=== PATIENT | female | born 1975 | race Caucasian/White ===

== ENCOUNTER 2022-06-15 16:45 | Outpatient (RCR) | payer BC, SELFPAY | END 2022-08-13 10:03 | disposition home or self-care (01) | PROVIDERS: PCP Family Medicine; Visit Provider Family Medicine | DX: M54.2 Cervicalgia (principal); Z51.89 Encounter for other specified aftercare | CPT/HCPCS: 97012; 97032; 97110; 97140 ==

== ENCOUNTER 2022-11-23 16:46 | Emergency (ER) | payer BC, SELFPAY ==
[2022-11-23] VITALS (13 sets, daily range): BP systolic 107–118; BP diastolic 64–72; PULSE 74–98; RESP 20; TEMP 36.6; O2SAT 94–100; BMI 30.5
[2022-11-23] MEDS: 0.9 % SODIUM CHLORIDE 1000 ml 1,000 ML IV (17:18)
[2022-11-23] MEDS: ONDANSETRON 2 MG/ML inj 4 MG IVP (17:18)
[2022-11-23 17:25] LABS: HCG Qualitative* Negative (Negative)
[2022-11-23 17:26] LABS: Lactate* 0.5 mmol/L (0.5-1.9)
[2022-11-23 17:27] LABS: Basophils Percent Auto 0.3 % (0.0-3.0); Eosinophils Percent Auto 2.7 % (0.0-7.0); Hematocrit 41.9 % (33.0-51.0); Hemoglobin* 13.9 gm/dL (12.0-16.0); Immature Granulocytes Pct Auto 0.2 %; Lymphocytes Percent Auto 10.2 % (20-44); Mean Corpuscular HGB Conc 33 gm/dL (32-36); Mean Corpuscular Hemoglobin 32 pg (26-34); Mean Corpuscular Volume 96 fL (80-100); Monocytes Percent Auto 2.9 % (0.0-11.0); Neutrophils Percent Auto 83.7 % (42.0-72.0); Platelet Count* 288 K/uL (140-440); RDW Coefficient of Variation % 11.7 % (11.5-15.5); Red Blood Count 4.38 m/uL (4.00-5.20); White Blood Count* 15.14 K/uL (4.50-11.00)
--- NOTE | 2022-11-23 17:42 | ED_ITS ---
HPI - General Adult General Chief complaint: Nausea/Vomiting Stated complaint: Can't keep anything down, colonoscopy this morning Time Seen by Provider: 11/23/22 16:51 Source: patient Mode of arrival: ambulatory Limitations: no limitations History of Present Illness HPI narrative: 47-year-old female coming in today complaining of vomiting. Patient states that she had a colonoscopy this morning and it was uneventful, however when she tried to drink water shortly after colonoscopy was over she vomited and has not been able to keep down anything since. She denies any blood in her vomitus. She denies any abdominal pain. No fevers or chills. Patient is requesting IV fluids as she states that she is ?dry?. Related Data Home Medications Medication Instructions Recorded Confirmed beclomethasone dipropionate 80 1 spray intranasal BID 11/23/22 11/23/22 mcg/actuation nasal HFA inhaler (QNASL) bupropion HCl 150 mg 24 hr tablet, 150 mg PO DAILY 11/23/22 11/23/22 extended release fluoxetine 20 mg capsule 20 mg PO DAILY 11/23/22 11/23/22 methylphenidate HCl 20 mg tablet 20 mg PO 3XD 11/23/22 11/23/22 methylphenidate HCl 20 mg 20 mg PO 3XD 11/23/22 11/23/22 tablet,extended release spironolactone 50 mg tablet 150 mg PO DAILY 11/23/22 11/23/22 Previous Rx's Medication Instructions Recorded ondansetron HCl 4 mg tablet 4 mg PO TID PRN nausea and 11/23/22 vomiting #10 tabs Allergies Allergy/AdvReac Type Severity Reaction Status Date / Time No Known Drug Allergies Allergy Verified 11/23/22 16:58 Review of Systems Status of ROS: Reports: 10 or more systems reviewed and unremarkable except as noted in History and below PFSH PFS Social History Smoking Status: Never smoker Second hand tobacco smoke exposure: No How often do you have a drink containing alcohol: 2-4 times a month AUDIT-C Alcohol total score: 2 Non-prescribed substance use: denies use Exam Narrative: Exam Narrative: Well-nourished well-developed patient in no acute distress. Alert and oriented. Answers questions appropriately. Mood and affect are appropriate. Thoughts are goal oriented and rational. No tangential or magical thinking noted. Patient speaks in full sentences without needing to catch their breath. HEENT: Normocephalic atraumatic. Pupils are equally round reactive to light. Extraocular muscles are intact. Conjunctivae are moist without any icterus noted. Moist mucous membranes. Posterior pharynx is normal. Neck is soft without any lymphadenopathy or thyromegaly. No masses are appreciated. Cardiovascular: Heart is regular rate and rhythm S1 and S2 are present without any murmurs. Lungs: Clear to auscultation bilaterally no wheezes rhonchi or rales are appreciated. Patient takes deep breaths without any discomfort. Abdomen: Soft and nontender nondistended with normal bowel sounds. No guarding or rebound. No masses or organomegaly appreciated. Extremities: Bilateral lower extremities are without edema. Normal DP and PT pulses. Skin: Well perfused without any obvious rashes. Const: Vital Signs, click to edit/add: Vital Signs - 24 hr 11/23/22 16:52 11/23/22 17:01 11/23/22 17:02 Temperature 97.9 F Pulse Rate 75 76 Pulse Rate [Pulse Oximeter] 74 Respiratory Rate 20 Blood Pressure 107/68 Blood Pressure [Ri ght Upper Arm] 118/72 Pulse Oximetry 97 96 96 Oxygen Delivery Me thod Room Air Room Air 11/23/22 17:18 11/23/22 17:30 11/23/22 17:31 Temperature Pulse Rate 77 76 82 Pulse Rate [Pulse Oximeter] Respiratory Rate Blood Pressure 109/69 Blood Pressure [Ri ght Upper Arm] Pulse Oximetry 100 99 100 Oxygen Delivery Me thod 11/23/22 17:45 11/23/22 18:00 11/23/22 18:01 Temperature Pulse Rate 86 86 89 Pulse Rate [Pulse Oximeter] Respiratory Rate Blood Pressure 109/64 Blood Pressure [Ri ght Upper Arm] Pulse Oximetry 96 94 99 Oxygen Delivery Me thod Course Course Hospital Course: IV was started and patient received a L of normal saline and Zofran. She had no episodes of vomiting while she was here. She was taking very small sips of water and having ice chips without difficulty. Lab work was unremarkable aside from a slightly elevated white cell count which would be consistent with a stress reaction. Vital Signs Vital signs: Initial Vital Signs Temperature 97.9 F 11/23/22 16:52 Temperature Source Temporal Artery Scan 11/23/22 16:52 Pulse Rate 74 11/23/22 16:52 Respiratory Rate 20 11/23/22 16:52 Blood Pressure 118/72 11/23/22 16:52 Blood Pressure Mean 87 11/23/22 16:52 Blood Pressure Position Semi-Fowlers 11/23/22 16:52 Pulse Oximetry 97 11/23/22 16:52 Oxygen Delivery Method 11/23/22 16:52 Vital Signs Temperature 97.9 F 11/23/22 16:52 Pulse Rate 74 11/23/22 16:52 Respiratory Rate 20 11/23/22 16:52 Blood Pressure 118/72 11/23/22 16:52 Pulse Oximetry 97 11/23/22 16:52 Oxygen Delivery Method 11/23/22 16:52 Temperature 97.9 F 11/23/22 16:52 Pulse Rate 89 11/23/22 18:01 Respiratory Rate 20 11/23/22 16:52 Blood Pressure 109/64 11/23/22 18:01 Pulse Oximetry 99 11/23/22 18:01 Oxygen Delivery Method 11/23/22 17:01 Medical Decision Making MDM Narrative Medical decision making narrative: Vomiting. Question reaction from the anesthesia she received earlier today. Patient is now feeling much better. Will send her home with a handful of Zofran to take as needed. We talked about slow hydration with small sips of water frequently throughout the rest of the day. She was agreeable had no other questions. Lab Data Lab results reviewed: Yes I reviewed the patient's lab results Labs: Lab Results 11/23/22 11/23/22 11/23/22 Range/Units 16:57 17:15 17:15 WBC 15.14 H (4.50-11.00) K/uL RBC 4.38 (4.00-5.20) m/uL Hgb 13.9 (12.0-16.0) gm/dL Hct 41.9 (33.0-51.0) % MCV 96 (80-100) fL MCH 32 (26-34) pg MCHC 33 (32-36) gm/dL RDW Coeff of [place]ah[place] 11.7 (11.5-15.5) % Plt Count 288 (140-440) K/uL Neut % (Auto) 83.7 H (42.0-72.0) % Lymph % (Auto) 10.2 L (20-44) % [place] % (Auto) 2.9 (0.0-11.0) % Eos % (Auto) 2.7 (0.0-7.0) % Baso % (Auto) 0.3 (0.0-3.0) % Neut # (Auto) 12.70 H (1.7-7.0) K/uL Lymph # (Auto) 1.50 (0.90-2.90) K/uL [place] # (Auto) 0.40 (0.00-0.90) K/UL Eos # (Auto) 0.40 (0.00-0.50) K/uL Baso # (Auto) 0.00 (0.00-0.30) K/uL Sodium 137 (135-149) mmol/L Potassium 4.1 (3.6-5.1) mmol/L Chloride 105 (96-114) mmol/L Carbon Dioxide 28 (20-32) mmol/L BUN 10 (5-24) mg/dL Creatinine 0.7 (0.5-1.5) mg/dL Estimated Creat Clear 98.69 Estimated GFR 109 ml/min Glucose 105 (60-115) mg/dL Lactate (0.5-1.9) mmol/L Calcium 8.8 (8.4-10.6) mg/dL Total Bilirubin 0.6 (0.1-1.5) mg/dL Direct Bilirubin 0.1 (0.0-0.5) mg/dL AST 23 (12-35) U/L ALT 14 (4-35) U/L Alkaline Phosphatase 52 (40-150) U/L Total Protein 7.1 (6.0-8.3) g/dL Albumin 4.4 (3.3-5.0) g/dL Lipase 80 (23-300) U/L HCG, Qual Negative (Negative) 11/23/22 Range/Units 17:15 WBC (4.50-11.00) K/uL RBC (4.00-5.20) m/uL Hgb (12.0-16.0) gm/dL Hct (33.0-51.0) % MCV (80-100) fL MCH (26-34) pg MCHC (32-36) gm/dL RDW Coeff of [place]ahy (11.5-15.5) % Plt Count (140-440) K/uL Neut % (Auto) (42.0-72.0) % Lymph % (Auto) (20-44) % [place] % (Auto) (0.0-11.0) % Eos % (Auto) (0.0-7.0) % Baso % (Auto) (0.0-3.0) % Neut # (Auto) (1.7-7.0) K/uL Lymph # (Auto) (0.90-2.90) K/uL [place] # (Auto) (0.00-0.90) K/UL Eos # (Auto) (0.00-0.50) K/uL Baso # (Auto) (0.00-0.30) K/uL Sodium (135-149) mmol/L Potassium (3.6-5.1) mmol/L Chloride (96-114) mmol/L Carbon Dioxide (20-32) mmol/L BUN (5-24) mg/dL Creatinine (0.5-1.5) mg/dL Estimated Creat Clear Estimated GFR ml/min Glucose (60-115) mg/dL Lactate 0.5 (0.5-1.9) mmol/L Calcium (8.4-10.6) mg/dL Total Bilirubin (0.1-1.5) mg/dL Direct Bilirubin (0.0-0.5) mg/dL AST (12-35) U/L ALT (4-35) U/L Alkaline Phosphatase (40-150) U/L Total Protein (6.0-8.3) g/dL Albumin (3.3-5.0) g/dL Lipase (23-300) U/L HCG, Qual (Negative) Discharge Plan Discharge Clinical Impression: Vomiting Patient Disposition: Home, Self-Care Condition: Improved Additional Instructions: Drink very small sips of water frequently throughout the rest of the day to stay well hydrated. You may vomit again, okay to use Zofran as needed. Prescriptions: New ondansetron HCl 4 mg tablet 4 mg PO TID PRN (Reason: nausea and vomiting) Qty: 10 0RF No Action methylphenidate HCl 20 mg tablet 20 mg PO 3XD methylphenidate HCl 20 mg tablet extended release 20 mg PO 3XD fluoxetine 20 mg capsule 20 mg PO DAILY spironolactone 50 mg tablet 150 mg PO DAILY bupropion HCl 150 mg tablet extended release 24 hr 150 mg PO DAILY QNASL 80 mcg/actuation HFA aerosol inhaler 1 spray INTRANASAL BID Follow Up/Referrals: Florida Haney MD [Primary Care Provider] - Stand Alone Forms: [facility] Info Instructions
[2022-11-23 17:49] LABS: Albumin* 4.4 g/dL (3.3-5.0)
[2022-11-23 17:50] LABS: Chloride* 105 mmol/L (96-114); Potassium* 4.1 mmol/L (3.6-5.1); Sodium* 137 mmol/L (135-149)
[2022-11-23 17:52] LABS: Aspartate Amino Transferase* 23 U/L (12-35); Bilirubin Direct* 0.1 mg/dL (0.0-0.5); Bilirubin Total* 0.6 mg/dL (0.1-1.5); Blood Urea Nitrogen* 10 mg/dL (5-24); Carbon Dioxide* 28 mmol/L (20-32); Creatinine* 0.7 mg/dL (0.5-1.5); Est. Creatinine Clearance* 98.69; Estimated Glomerular Filt Rate 109 ml/min; Total Protein* 7.1 g/dL (6.0-8.3)
[2022-11-23 17:53] LABS: Alanine Aminotransferase* 14 U/L (4-35); Alkaline Phosphatase* 52 U/L (40-150); Calcium* 8.8 mg/dL (8.4-10.6); Glucose* 105 mg/dL (60-115); Lipase* 80 U/L (23-300)
[2022-11-23 18:02] LABS: Slide Review Reflex No
[2022-11-23] MEDS: KETOROLAC 30 MG/ML inj IVP (18:27)
== END 2022-11-23 18:48 | disposition home or self-care (01) ==
PROVIDERS: Emergency Provider Family Medicine; PCP Family Medicine
DX: R11.2 Nausea with vomiting, unspecified (principal)
CPT/HCPCS: 36415; 80048; 80076; 83605; 83690; 84703; 85025; 96374; 96375; 99283; 99284; J1885; J2405; J7030

== ENCOUNTER 2023-01-22 16:45 | Outpatient (RCR) | payer BC, SELFPAY | END 2023-04-08 09:10 | disposition home or self-care (01) | PROVIDERS: PCP Family Medicine; Referring Provider Family Medicine; Visit Provider Neurological Surgery | DX: M54.2 Cervicalgia (principal); Z51.89 Encounter for other specified aftercare | CPT/HCPCS: 97110; 97140; 97162 ==

== ENCOUNTER 2023-03-25 19:52 | Emergency (ER) | payer BC, SELFPAY ==
[2023-03-25] VITALS (17 sets, daily range): BP systolic 106–115; BP diastolic 53–72; PULSE 73–88; RESP 16; TEMP 36.1; O2SAT 95–100; BMI 31.3
--- NOTE | 2023-03-25 20:22 | ED_ITS ---
HPI - General Adult General Chief complaint: Headache/Migraine Stated complaint: CT myelogram done, dehydrated Time Seen by Provider: 03/25/23 20:19 History of Present Illness HPI narrative: Pt c/o headache , nausea, and vomiting that started today at 1200, when she had contrast dye injected via lumbar puncture for CT scan at [place]. Pt states as soon as dye was injected, headache and nausea started. Neuro surgery done in August and pt states she was still having a numb left hand , which is why they did the scan. 47-year-old woman presenting to the emergency department complaint of frequent vomiting and persistent nausea. Had a CT myelogram around noon today for p ersistent left hand numbness following end of last year foraminotomies of the low cervical spine. About 1/2 hour to 45 minutes after this procedure started to feel rather unwell with repeated vomiting. Headache is behind her eyes and up over her forehead. No new numbness or weakness. No fever. No discoordination. 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 Apparently per her mother this is a family condition. Headache intensifies upon sitting standing. Would like Zofran and fluids. Had received some Zofran earlier today. Evidently would like to delay blood patch. Related Data Home Medications Medication Instructions Recorded Confirmed beclomethasone dipropionate 80 1 spray intranasal BID 11/23/22 03/25/23 mcg/actuation nasal HFA inhaler (QNASL) bupropion HCl 150 mg 24 hr tablet, 150 mg PO DAILY 11/23/22 03/25/23 extended release fluoxetine 20 mg capsule 20 mg PO DAILY 11/23/22 03/25/23 methylphenidate HCl 20 mg tablet 20 mg PO 3XD PRN 11/23/22 03/25/23 methylphenidate HCl 20 mg 20 mg PO 3XD 11/23/22 11/23/22 tablet,extended release spironolactone 50 mg tablet 150 mg PO DAILY 11/23/22 03/25/23 sulfacetamide sodium (acne) 10 % topical DAILY 03/25/23 lotion (suspension) Previous Rx's Medication Instructions Recorded ondansetron HCl 4 mg tablet 4 mg PO TID PRN nausea and 11/23/22 vomiting #10 tabs Allergies Allergy/AdvReac Type Severity Reaction Status Date / Time Latex, Natural Rubber Allergy Mild Rash Verified 03/25/23 20:07 scopolamine Allergy Mild Blurry Verified 03/25/23 20:07 Vision Review of Systems Status of ROS: Reports: 6 or more systems reviewed and unremarkable except as noted in History and below [facility] Social History Smoking Status: Never smoker Do you use any of these nicotine containing products: None Second hand tobacco smoke exposure: No How often do you have a drink containing alcohol: 2-4 times a month AUDIT-C Alcohol total score: 2 Non-prescribed substance use: denies use service: No Exam Narrative: Exam Narrative: Pleasant. Laughs easily. Seems fatigued. Skin is warm and dry. Examination of the site of lumbar puncture shows a small bruising less than a cm in oval diameter. No swelling here. Cranial nerves 2-12 look to be intact. With pupils equal and briskly reactive. Heart is in a regular rhythm. Moving all extremities without difficulty. Appear to be well perfused and without edema. Const: Vital Signs, click to edit/add: Vital Signs - 24 hr 03/25/23 19:57 Temperature 97.0 F L Pulse Rate [Pulse Oximeter] 75 Respiratory Rate 16 Blood Pressure [Ri ght Upper Arm] 115/72 Pulse Oximetry 96 Oxygen Delivery Me thod Room Air Documenting provider has reviewed patient's vital signs: yes Course Vital Signs Vital signs: Initial Vital Signs Temperature 97.0 F L 03/25/23 19:57 Temperature Source Temporal Artery Scan 03/25/23 19:57 Pulse Rate 75 03/25/23 19:57 Respiratory Rate 16 03/25/23 19:57 Blood Pressure 115/72 03/25/23 19:57 Blood Pressure Mean 86 03/25/23 19:57 Blood Pressure Position Supine 03/25/23 19:57 Pulse Oximetry 96 03/25/23 19:57 Oxygen Delivery Method Room Air 03/25/23 19:57 Vital Signs Temperature 97.0 F L 03/25/23 19:57 Pulse Rate 75 03/25/23 19:57 Respiratory Rate 16 03/25/23 19:57 Blood Pressure 115/72 03/25/23 19:57 Pulse Oximetry 96 03/25/23 19:57 Oxygen Delivery Method Room Air 03/25/23 19:57 Temperature 97.0 F L 03/25/23 19:57 Pulse Rate 84 03/25/23 23:45 Respiratory Rate 16 03/25/23 19:57 Blood Pressure 107/63 03/25/23 22:02 Pulse Oximetry 97 03/25/23 23:45 Oxygen Delivery Method Room Air 03/25/23 19:57 Medical Decision Making MDM Narrative Medical decision making narrative: appears to have a spinal headache. preference is to wait for blood patch. will treat symptoms. avoiding nsaids, given NS and zofran. improved on reevaluation. ambulatory from ER see patient discharge plan Discharge Plan Discharge Clinical Impression: Spinal headache, Vomiting, Dehydration Patient Disposition: Home w/ Parent or Adult Condition: Improved Additional Instructions: Continue to focus on hydration. Diluted juices, soup broths, toast, rice, crackers. Rest. Stay in touch with your neuro folks for further guidance. Return otherwise for marked increase in persistent pain, fever, intractable vomiting, new weakness. Zofran and [place] from [facility]. Prescriptions: No Action sulfacetamide sodium (acne) 10 % suspension topical DAILY methylphenidate HCl 20 mg tablet 20 mg PO 3XD PRN methylphenidate HCl 20 mg tablet extended release 20 mg PO 3XD fluoxetine 20 mg capsule 20 mg PO DAILY spironolactone 50 mg tablet 150 mg PO DAILY bupropion HCl 150 mg tablet extended release 24 hr 150 mg PO DAILY QNASL 80 mcg/actuation HFA aerosol inhaler 1 spray INTRANASAL BID ondansetron HCl 4 mg tablet 4 mg PO TID PRN (Reason: nausea and vomiting) Qty: 10 0RF Follow Up/Referrals: Florida Haney MD [Primary Care Provider] - Stand Alone Forms: [facility] Info Instructions
[2023-03-25] MEDS: 0.9 % SODIUM CHLORIDE 1000 ml 1,000 ML IV (20:51)
[2023-03-25] MEDS: ONDANSETRON 2 MG/ML inj 4 MG IVP (20:51)
[2023-03-25] MEDS: 0.9 % SODIUM CHLORIDE 1000 ml 1,000 ML 6000 ML IV (22:10)
== END 2023-03-26 00:03 | disposition home or self-care (01) ==
PROVIDERS: Emergency Provider Family Medicine; PCP Family Medicine
DX: T88.59XA Other complications of anesthesia, initial encounter (principal); G44.40 Drug-induced headache, not elsewhere classified, not intractable
CPT/HCPCS: 96374; 99284; J2405; J7030

== ENCOUNTER 2023-03-29 18:18 | Emergency (ER) | payer BC, SELFPAY ==
[2023-03-29] VITALS (11 sets, daily range): BP systolic 114–122; BP diastolic 70–87; PULSE 68–162; RESP 16–18; TEMP 35.9; O2SAT 64–100; BMI 23.2
--- NOTE | 2023-03-29 19:13 | ED.GENADULT ---
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 She underwent a lumbar puncture for a CT myelogram 4 days ago. Did have initial nausea vomiting and headache. Was advised to rest, lie flat as much as possible in symptoms should improve. She was evaluated in the emergency department for dehydration. She was given Zofran, IV fluids. Those notes are reviewed. She reports that she has been following the instructions, laid flat for basically 48 hours, started to do some gentle activity around the house yesterday and today tried to leave the house to go to a golf outing to watch her son play. Even sitting upright in the car caused her to feel motion sick. After an hour of walking around the golf course at a slow pace, her headache returned intensely. She went back to lie down in the car and her headache improved with lying down. Throughout the day she has continued to notice positional headache, no vomiting. She is scheduled to leave for a educational conference in a few days and is worried about persistent symptoms. She is not running any fever. There is no altered mental status. No neurological changes. She is able to eat and drink normally. No new trauma or injury. Lumbar puncture was performed at [facility] [place]. Per her description, she did not receive a postprocedure follow-up phone call because that nurse was out sick. She had been counting on that to update the team on her symptoms today for further advice. She is taking daily Celebrex which is not helping her headache today. She has sporadically use Tylenol in the last few days but did not try any today. No anticoagulants. Past medical history notable for anxiety, acne and some neurological changes in her left hand for which she sees outpatient providers. Home meds are bupropion, fluoxetine, spironolactone, Celebrex and has recently stopped taking gabapentin. Nonsmoker. ROS is notable for the headache as above. Denies any other generalized, neurological, musculoskeletal, skin or other systemic concerns x8 systems Related Data Home Medications Medication Instructions Recorded Confirmed beclomethasone dipropionate 80 1 spray intranasal BID 03/10/23 07/10/23 mcg/actuation nasal HFA inhaler (QNASL) bupropion HCl 150 mg 24 hr tablet, 150 mg PO DAILY 11/23/22 03/25/23 extended release fluoxetine 20 mg capsule 20 mg PO DAILY 11/23/22 03/25/23 methylphenidate HCl 20 mg tablet 20 mg PO 3XD PRN 11/23/22 03/25/23 methylphenidate HCl 20 mg 20 mg PO 3XD 11/23/22 11/23/22 tablet,extended release spironolactone 50 mg tablet 150 mg PO DAILY 11/23/22 03/25/23 sulfacetamide sodium (acne) 10 % topical DAILY 03/25/23 lotion (suspension) Previous Rx's Medication Instructions Recorded ondansetron HCl 4 mg tablet 4 mg PO TID PRN nausea and 11/23/22 vomiting #10 tabs Allergies Allergy/AdvReac Type Severity Reaction Status Date / Time Latex, Natural Rubber Allergy Mild Rash Verified 03/25/23 20:07 scopolamine Allergy Mild Blurry Verified 03/25/23 20:07 Vision PFSH PFS Social History Smoking Status: Never smoker Do you use any of these nicotine containing products: None Second hand tobacco smoke exposure: No How often do you have a drink containing alcohol: 2-4 times a month AUDIT-C Alcohol total score: 2 Non-prescribed substance use: denies use service: No Exam Const: Vital Signs, click to edit/add: Vital Signs - 24 hr 03/29/23 18:29 Temperature 96.6 F L Pulse Rate [Right Pulse Oximeter] 83 Respiratory Rate 16 Blood Pressure [Le ft Upper Arm] 121/80 Pulse Oximetry 100 Oxygen Delivery Me thod Room Air Documenting provider has reviewed patient's vital signs: yes Common normals: no apparent distress General appearance: cooperative, comfortable and well kempt Orientation/consciousness: Yes awake Other: Excellent historian. Appears well nourished and well hydrated. HENMT: Common normals: normocephalic and head/scalp atraumatic Head and scalp: normocephalic and atraumatic Face and sinus: normal facial exam Mouth: oral and palatal mucosa normal Throat: posterior oropharynx normal Eye: Common normals: PERRL, EOMs intact bilaterally and conjunctivae normal General eye: normal appearance of both eyes Conjunctiva: conjunctiva(e) normal Pupil: PERRL Neck & C-Spine: Common normals: full ROM, no lymphadenopathy, supple and no meningeal signs Resp: Common normals: normal respiratory effort, no use of accessory muscles and clear to auscultation bilaterally Effort & inspection: able to speak in complete sentences Auscultation: clear to auscultation bilaterally Cardio: Common normals: regular rate, regular rhythm, S1 normal heart sound, S2 normal heart sound and no murmurs Rate: regular rate Rhythm: regular rhythm Heart sounds: S1 normal and S2 normal Back & Pelvis: Other: Normal-appearing cervical, thoracic and lumbar spine. Tiny puncture site with no evidence of swelling, redness, fluid leakage, or bruising Extremity: Common normals: normal capillary refill and no pedal edema Neuro: Common normals: moves all extremities, no focal motor deficits and gait normal Sensorium/orientation: awake Meningeal signs: no meningeal signs Speech: speech normal Psych: Common normals: speech normal Appearance: well kempt Attitude: calm and engaged Speech: normal speech Insight: insight good Judgement: judgment good Skin: Common normals: no rashes or lesions noted General skin exam: no rashes or lesions noted Course Course Hospital Course: Differential diagnosis including migraine headache, encephalitis, leakage of cerebrospinal fluid from recent lumbar puncture, musculoskeletal etiology, tension headache, among others. Clinically there are no signs of infection, stroke or other neurological change. Her headaches are very positional which is suggestive of a spinal headache as was suspected a couple of days ago as well. She is failing conservative management. She is interested in a blood patch after we discussed the risks and benefits. IV will be placed, she will receive a L of normal saline and I will contact the anesthesia team to get the feedback on possibly performing a blood patch. Reevaluation(s) Reevaluation #1: Patient received a blood patch from anesthesia, please see their documentation. Procedure went technically well. She did have some nausea during the procedure. Anesthesia team would like for her to get another L of fluids prior to discharge. She will rest for about the next 45 minutes while she receives those fluids and then will be discharged. My incoming shift engineer partner will only create an addendum if there is further management needed or other complications. Nursing team will update him if there are any unexpected changes. Vital Signs Vital signs: Initial Vital Signs Temperature 96.6 F L 03/29/23 18:29 Temperature Source Temporal Artery Scan 03/29/23 18:29 Pulse Rate 83 03/29/23 18:29 Pulse Rhythm Regular 03/29/23 18:29 Respiratory Rate 16 03/29/23 18:29 Blood Pressure 121/80 03/29/23 18:29 Blood Pressure Mean 93 03/29/23 18:29 Blood Pressure Position Supine 03/29/23 18:29 Pulse Oximetry 100 03/29/23 18:29 Oxygen Delivery Method Room Air 03/29/23 18:29 Vital Signs Temperature 96.6 F L 03/29/23 18:29 Pulse Rate 83 03/29/23 18:29 Respiratory Rate 16 03/29/23 18:29 Blood Pressure 121/80 03/29/23 18:29 Pulse Oximetry 100 03/29/23 18:29 Oxygen Delivery Method Room Air 03/29/23 18:29 Temperature 96.6 F L 03/29/23 18:29 Pulse Rate 83 03/29/23 18:29 Respiratory Rate 16 03/29/23 18:29 Blood Pressure 121/80 03/29/23 18:29 Pulse Oximetry 100 03/29/23 18:29 Oxygen Delivery Method Room Air 03/29/23 18:29 Discharge Plan Discharge Clinical Impression: Spinal headache Patient Disposition: Home w/ Parent or Adult Condition: Improved Instructions: Epidural Blood Patch (DC) Additional Instructions: It is okay to continue your Celebrex and take Tylenol as needed. Try to rest as much as possible for the next few hours. Your symptoms should be markedly improved. If you are still very symptomatic tomorrow, I would recommend you contact your neurology team. Activity Level: No strenuous activity Discharge Diet: Regular Prescriptions: No Action sulfacetamide sodium (acne) 10 % suspension topical DAILY methylphenidate HCl 20 mg tablet 20 mg PO 3XD PRN methylphenidate HCl 20 mg tablet extended release 20 mg PO 3XD fluoxetine 20 mg capsule 20 mg PO DAILY spironolactone 50 mg tablet 150 mg PO DAILY bupropion HCl 150 mg tablet extended release 24 hr 150 mg PO DAILY QNASL 80 mcg/actuation HFA aerosol inhaler 1 spray INTRANASAL BID ondansetron HCl 4 mg tablet 4 mg PO TID PRN (Reason: nausea and vomiting) Qty: 10 0RF Follow Up/Referrals: [place] Haney MD [Primary Care Provider] - Stand Alone Forms: [facility] Info Instructions
[2023-03-29] MEDS: 0.9 % SODIUM CHLORIDE 1000 ml 1,000 ML IV (19:28)
[2023-03-29] MEDS: ONDANSETRON 2 MG/ML inj 4 MG IVP (21:04)
[2023-03-29] MEDS: 0.9 % SODIUM CHLORIDE 1000 ml 1,000 ML 2000 ML IV (21:09)
--- NOTE | 2023-03-29 21:10 | ED.NURSE ---
Anesthesia came in today and performed blood patch procedure starting at 20:40. This marketing writer present during the procedure and assisted with drawing 20 cc of blood off of the IV in right antecube which was used for the patch. Patient became light headed, sweaty, and pale in color during the procedure but did not lose consciousness. Procedure paused for deep breathing and zofran administered which was effective. Procedure restarted and was completed without any other incident. Vital signs remained stable with no tachycardia noted and systolic blood pressure stable in the 120's. Laid flat afterward, color returned, and cold washcloth to forehead. Patient also received another liter of NS.
--- NOTE | 2023-03-29 21:18 | PM.ANBPRC ---
[facility] Social History Smoking Status: Never smoker Do you use any of these nicotine containing products: None Second hand tobacco smoke exposure: No How often do you have a drink containing alcohol: 2-4 times a month AUDIT-C Alcohol total score: 2 Non-prescribed substance use: denies use service: No Meds Home Medications and Allergies Home Medications Medication Instructions Recorded Confirmed Type beclomethasone dipropionate 80 1 spray intranasal BID 11/23/22 03/25/23 History mcg/actuation nasal HFA inhaler (QNASL) bupropion HCl 150 mg 24 hr tablet, 150 mg PO DAILY 11/23/22 03/25/23 History extended release fluoxetine 20 mg capsule 20 mg PO DAILY 11/23/22 03/25/23 History methylphenidate HCl 20 mg tablet 20 mg PO 3XD PRN 11/23/22 03/25/23 History methylphenidate HCl 20 mg 20 mg PO 3XD 11/23/22 11/23/22 History tablet,extended release spironolactone 50 mg tablet 150 mg PO DAILY 11/23/22 03/25/23 History sulfacetamide sodium (acne) 10 % topical DAILY 03/25/23 History lotion (suspension) Allergies Allergy/AdvReac Type Severity Reaction Status Date / Time Latex, Natural Rubber Allergy Mild Rash Verified 03/25/23 20:07 scopolamine Allergy Mild Blurry Verified 03/25/23 20:07 Vision Results Vital Signs Vital Signs: Last Vital Signs Temp 96.6 F L 03/29/23 18:29 Pulse 83 03/29/23 21:14 Resp 18 03/29/23 21:14 BP 122/70 03/29/23 21:14 Pulse Ox 96 03/29/23 21:14 O2 Del Method Room Air 03/29/23 21:14 Weight: 61.235 kg Height: 162.56 cm Anesthesia Procedures Epidural Blood Patch Patient Location: ED Start Time: 20:30 Stop Time: 21:15 Reason for Blood Patch: spinal headache and CSF leak MANUFACTURING PROCESS TECHNICIAN: Jai Gaytan Preanesthetic Checklist: IV checked, risks and benefits discussed, surgical consent, monitors and equipment checked, pre-op evaluation, timeout performed and anesthesia consent Patient Symptoms: postural headache, vomiting, nausea, photophobia and neck stiffness Pain (1-10): 8 Pain Frequency: intermittent (Subsides when supine) Quality of Pain: aching and pressure Pain exacerbated by: standing and sitting Pain Made Worse: body movement Pain made better: position change Diagnosis of PDPH: Yes Volume of Blood Injected (mL): 16 Patient Position: sitting Prep: Chloraprep Monitoring: EKG, cont pulse oximetry and BP monitoring Approach: midline Location: L4-5 (The same level as her procedure) Injection Technique: ANA saline Injection Method: Touhy needle Needle Gauge Used: 17 Needle Length (cm): 10 cm Catheter Type: none Notes: Pt. tolerated well
== END 2023-03-29 22:24 | disposition home or self-care (01) ==
PROVIDERS: Emergency Provider Family Medicine; PCP Family Medicine
DX: R51.9 Headache, unspecified (principal)
CPT/HCPCS: 62273; 96374; 99283; 99284; J2405; J7030

== ENCOUNTER 2024-03-18 07:31 | Outpatient (CLI) | payer BC, SELFPAY ==
--- OUTSIDE RECORDS SUMMARY | 2024-03-18 07:33 | XMS_ITS | Continuity of Care Document ---
Author Organization [facility] Address [address] [place] [address] Phone Care Team Providers Care Life Skills Specialist Name Role Phone Sangeetha MELENDEZ, [place] Unavailable Unavailable Allergies, Adverse Reactions, Alerts Substance Reaction Status Criticality No Known Allergies Active No Inform ation Medications Medication Instructions Dosage Effective Dates (start - stop) Status Comments BUPROPION HCL (unknown strength) Not Available - Active SPIRONOLACTONE (unknown strength) Not Available - Active FLUOXETINE HCL (unknown strength) Not Available - Active METHYLPHENIDATE ER (unknown strength) Not Available - Active Procedures Procedure Date Office/Outpatient Visit,[facility], [facility] 2022 Advance Directives Directive Yes / No Effective Date File Name No Information Encounters Encounter Description Practice Location Reason(s) For Visit Diagnoses Date Provider Providers Copied on Encounter Office/Outpati ent Visit,New, [facility] , [address], [place], [place], [id number], [place] tel:[phone] [facility] - [facility] Radiculopat hy, cervical region Sangeetha Jimenez [facility], [address] [place] [address] [address], [place], [place], [id number], [place]. tel:[phone] Referring Provider: Marcin Rocha, [facility] [address] , [place], [address]. tel:[phone] Family History Family Member Type Diagnosis Age At Onset No Information Payers Payer name Insurance type Covered alliance party ID Authoriza andreia(s) [facility] [id number] [facility] [id number] Social History Type Description Quantity Date Captured Comments Alcohol Use Details Unknown Caffeine Use Details Unknown Tobacco Use Status Current non-smoker Smoking Status Never smoker Non-Smoking Tobacco Use Details : No Details Available : No Details Available Sex Female Vital Signs Date / Time: Height Weight BMI Pulse Rate Blood Pressure Temperature Respiratory Rate Body Surface Area Head Circumference Head Circ. Percentile Wt./Milo. Percentile BMI percentile Pulse Ox Inhaled Ox 8:57 AM 67.00 in 89.993 kg (198.40 lbs) 31.0 7 kg/m eter (2) Chief Complaint And Reason For Visit No Information Reason For Referral Reason For Referral No Information History Of Present Illness Encounter Date Complaint History Of Prese nt Illness No Information Functional Status Date Functional Assessmen t No Information Instructions Date Instruction Additional Infor mation No Information Assessments Type Assessment Date No Information Patient Care Teams Name Effective Dates (start - stop) Status Members No Information
--- OUTSIDE RECORDS SUMMARY | 2024-03-18 07:34 | XMS_ITS | Clinical Summary ---
Author Organization [employer] [facility] [employer] [facility] Address [place], [place] [address] Care Team Providers Care Student Financial Aid Manager Name Role Phone Florida Haney MD Primary Care Provider Allergies Active Allergy Reactions Criticality Noted Date Comments Latex Contact Dermatitis 01/10/2007 Scopolamine Intolerance-Can't Take 08/17/2022 Blurred vision, dizzy, doesn't remember much of trip after wearing patch on vacation Medications Medication Sig Dispensed Refills Start Date End Date Status CALCIUM 500 MG TAB Once daily 0 03/28/2007 Active cetirizine (ZYRTEC) 10 mg tablet Take 1 tablet by mouth once daily. 0 11/18/2010 Active Lactobacillus acidophilus 10 billion cell cap Take 1 capsule by mouth once daily. 0 10/04/2017 Active zinc 50 mg tablet Take 1 tablet by mouth once daily. 0 09/14/2020 Active magnesium chloride 64 mg magnesium tab Take by mouth. 0 02/17/2021 Active ascorbic acid, vitamin C, (VITAMIN C) 1,000 mg tablet Take 1 Tablet (1,000 mg) by mouth once daily. 0 02/17/2021 Active metroNIDAZOLE 0.75 % cream APPLY A THIN LAYER TO ENTIRE FACE DAILY TO TWICE DAILY 01/10/2021 Active Adapalene 0.3 % topical gel APPLY A SMALL AMOUNT TO FACE EVERY OTHER NIGHT, INCREASING TO NIGHTLY TOLERATED. MOISTURIZE AFTER 07/14/2021 Active triamcinolone (ARISTOCORT; KENALOG) 0.1 % cream APPLY TO AFFECTED AREA ON BODY ONCE DAILY IN THE MORNING FOR UP TO 2 WEEKS, THEN NEEDED 10/13/2021 Active clobetasol cream 0.05% (TEMOVATE) 0.05 % cream APPLY TO AFFECTED AREA ON BODY ONCE DAILY IN THE MORNING FOR UP TO 2 WEEKS, THEN NEEDED 10/13/2021 Active methylphenidate HCl (RITALIN) 20 mg tablet Take by mouth 3 times daily. 10/31/2021 Active spironolactone (ALDACTONE) 50 mg tablet Take 100 mg by mouth once daily. 10/30/2021 Active beclomethasone dipropionate (QNASL) 80 mcg/actuation HFAA 03/14/2022 Active Fish Oil-DHA-EPA (Fish OiL) 1,200-144-216 mg cap Take by mouth once daily. 0 08/20/2022 Active methocarbamoL (ROBAXIN) 750 mg tabletIndications:A cute post-operative pain Take 1 Tablet (750 mg) by mouth every 4 hours. 36 Tablet 2 12/12/2022 Active blood-glucose meterIndications:Pr ediabetes Dispense meter, test strips, lancets covered by pt ins. Prediabetes 1 Each 07/26/2023 Active buPROPion (WELLBUTRIN XL) 150 mg Extended-Release tabletIndications:A nxiety,BMI 30.0-30.9,adult Take 1 Tablet (150 mg) by mouth once daily. 90 Tablet 3 07/26/2023 Active FLUoxetine (PROZAC) 20 mg capsuleIndications: Anxiety,BMI 30.0-30.9,adult Take 1 Capsule (20 mg) by mouth every morning. 90 Capsule 3 07/26/2023 Active Blood Glucose Control High&Low (Accu-Chek Guide L1-L2 Ctrl Sandra) solnIndications:Pre diabetes As directed. Accu-chek guide control solution 1 Each 08/01/2023 Active blood sugar diagnostic (Accu-Chek Guide test strips) stripIndications:Pr ediabetes Dispense item covered by pt ins. Prediabetes - pt will be testing blood sugar once per day. 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 Jiang Depressive disorder, not elsewhere classified Resolved Problems Problem Noted Date Diagnosed Date Resolved Date Twin , antepartum 09/10/2007 1 11/13/2007 Dichorionic, diamniotic twins 09/10/2007 09/12/2008 Abnormal maternal glucose to lerance, antepartum 08/25/2007 09/12/2008 Encounters Date Type Department Care Team Description 03/13/2024 8:40 AM CDT Office Visit [facility] [address] [place] [address] Marcin De La Torre MD Musculoskeletal Problem (Follow Up Neck Pain); Form (Form for Diability) 03/13/2024 Telephone [facility] [address] [place] [address] Khadar Sullivan DPM Shoes inserts 03/12/2024 Travel 02/06/2024 1:45 PM CDT Office Visit [facility] [place] [address] [id number] Khadar Sullivan DPM Follow Up (Bilateral bunions) 02/06/2024 Travel 02/04/2024 Travel from Last 3 Months Immunizations Name Administration Dates Next Due AMB Influenza, IIV3 (Age >=3 years)(Flu Clinic Only) 07/04/2013,07/27/2011,08/21/2009 AMB Influenza, IIV4 PF (=>6 mos Flulaval,Fluzone Fluarix)(Flu Clinic Only) 08/05/2015 COVID-19 vaccine ([employer] 30mcg/0.3mL) PF, MDV 01/06/2021,12/17/2020 DTaP 02/02/2003 Influenza, IIV3 (Age 6-35 mos) 07/25/2012,2010,08/04/2010 Influenza, IIV3 (Age >=3 years) 07/04/2013 Influenza, IIV4 07/26/2023,,08/04/2021,06/10/20,06/12/2019,07/05/2018,09/24/2017,09/14 Td (Age >=7 Years) 09/16/1992 Tdap 01/29/2015,02/21/2006 Family History Medical History Relation Name Comments Good Health Daughter 1 Magdalena Good Health Daughter 2 Gilda Diabetes Father Cancer-breast Maternal Aunt Andreea Diagnosed in her early 60s Cancer-colon Maternal Grandfather shortly after diagnosis Good Health Mother Other Mother narcolepsy Cancer-breast Other Maternal Great Aunt Other Sister 1 Bernice narcolepsy Psychiatric illness Sister 1 Bernice adhd, de pression Cancer-ovarian No Family History Cancer-prostate No Family History Relation Name Status Comments Brother none Daughter 1 Magdalena Alive Daughter 2 Gilda Alive Father Alive Maternal Aunt Andreea Alive tripple negati ve breast cancer Maternal Grandfather Mother Alive Other maternal great aunt from breast cancer in her 40s or 50s Sister 1 Bernice Alive Sister 2 Margarito Alive Social History Tobacco Use Types Packs/Day Years Used Date Smoking Tobacco: Never Smokeless Tobacco: Never Tobacco Cessation:Counseling Given: No Comments:no passive Alcohol Use Standard Drinks/Week Comments Yes 1 (1 standard drink = 0.6 oz pure alcohol) I rarely drink; have 1-2 drinks per month PHQ-2 Answer Date Recorded PHQ-2 TOTAL SCORE 0 07/26/2023 Social Connections Answer Date Recorded Frequency of Communication with Friends and Fami ly Not on file 12/29/2023 Financial Resource Strain Answer Date R ecorded Difficulty of Paying Living Expenses 3 12/25/2022 Difficulty of Paying Living Expenses Not on file 12/25/2022 Food Insecurity Answer Date Recorded Worried About Running Out of Food in the Last Ye ar 1 12/25/2022 Transportation Needs Answer Date Record ed Lack of Transportation (Medical) 1 12/25/2022 Housing Stability Answer Date Recorded Unable to Pay for Housing in the Last Year 1 12/25/2022 Sex and Gender Information Value Date Recorded Sex Assigned at Not on file Gender Identity Not on file Sexual Orientation Not on file Obstetrics History Para Term AB IAB SAB Ectopic Multiple Livin g Live Births 2 0 Date Outcome GA Total Labor Labor/2nd/3rd Weight Sex Type Anes PTL Verónica A1 A5 Name Clin Comments:System [facility]. Please review and update details. Last Filed Vital Signs Vital Sign Reading Time Taken Comments Blood Pressure 110/73 03/13/2024 8:59 AM CDT Pulse 105 03/13/2024 8:59 AM CDT Temperature 36.9 ??C (98.4 ??F) 03/13/2024 8:59 AM CD T Respiratory Rate 16 03/25/2023 2:06 PM CDT Oxygen Saturation 98% 03/13/2024 8:59 AM CDT Inhaled Oxygen Concentration - - Weight 88.5 kg (195 lb 3.2 oz) 03/13/2024 8:59 A M CDT Height 170.2 cm (5' 7) 07/26/2023 1:16 PM [employer] Body Mass Index 30.57 07/26/2023 1:16 PM [employer] Plan of Treatment Upcoming Encounters Date Type Department Care Team (Late st Contact Info) Description 09/11/2024 9:40 AM [employer] Office Visit [facility] [address] [place] [address] Marcin De La Torre MD [address] [place] [address] Health Maintenance Due Date Last Done Comments COVID-19 vaccine series ( season) 2023 01/06/2021, 12/17/2020 Influenza for age 9-49 05/17/2024 3, 07/27/2022, 08/04/2021, Additional history exists Pap test for age 21-65 06/12/2024 9, 06/12/2019, 04/18/2016, Additional history exists BMI (ht and wt on same day) for age 18+ 07/26/2024 07/26/2023, 10/29/2022, 09/18/2022, Additional history exists Depression screening for age 12+ 07/26/2024 07/26/2023, 07/27/2022, 07/27/2022, Additional history exists Mammogram for age 45-75 09/06/2024 09/06/20 23, 09/07/2022, 09/05/2021, Additional history exists Tetanus booster 01/29/2025 01/29/2015, 04/2006, 09/16/1992 Colonoscopy through age 75 11/24/202711/23, 11/23/2022, 11/23/2022 Lipids for age 45-75 07/26/2028 07/26/2023, 07/27/2022, 08/18/2021, Additional history exists HIV for age 15-65 Completed 08/19/2009, , 11/08/2008, Additional history exists Hepatitis C screening for age 18-79 Completed 08/19/2009, 02/28/2009, 11/08/2008, Additional history exists Tdap Completed 01/29/2015, 02/21/2006 Pneumococcal series for age 6-64 Aged Out No longer eligible based on patient's age to complete this topic Procedures Procedure Name Priority Date/Time Associated Diagnosis Comments XR MAMMO JUAN BILAT SCREEN Routine 09/06/2023 9:00 AM [employer] Encounter for screening mammogram for malignant neoplasm of breast LIPID PANEL W REFLEX MEASURED LDL Routine 07/26/2023 2:02 PM [employer] Lipid screening COLONOSCOPY SCREENING Routine 11/23/2022 8:00 AM [employer] Screening for colon cancer LACE ROLLER THIN PREP PAP SCREEN IMAGED Routine 06/12/2019 11:30 AM CDT Screening for malignant neoplasm of cervix ANTI HIV 1/2 Routine 08/19/2009 9:01 AM [employer] Exposure to Body Fluids by Contaminated Hypodermic Needle Stick ANTI HCV Routine 08/19/2009 9:01 AM [employer] Exposure to Body Fluids by Contaminated Hypodermic Needle Stick from Last 3 Months or Most Recently Relevant to Health Maintenance Results * XR MAMMO JUAN BILAT SCREEN (09/06/2023 9:00 AM [employer]) Anatomical Region Laterality Modality BREASTS, Breast Left, Breast Right Bilateral Mammography Impressions 09/06/2023 1:01 PM [employer] ??There is no radiographic evidence for malignancy. ??Recommend annual mammograms. MAMMOGRAM ASSESSMENT: ??ACR 1 Negative PATIENTS: You will also receive a letter with your examination results in an easy to read format. ??If you have questions about your results, please contact your referring provider. Narrative 09/06/2023 1:01 PM [employer] For Patients: As a result of the Century Cures Act, medical imaging exams and procedure reports are released immediately into your electronic medical record. You may view this report before your referring provider. If you have questions, please contact your health care provider. XR MAMMO JUAN BILAT SCREEN [[id number]] CLINICAL HISTORY: ??This is an asymptomatic 47 y.o. patient. INDICATION FOR EXAM: Mammogram Screening. TECHNIQUE: CC & MLO views were obtained. ??This study was evaluated with the assistance of Computer-Aided Detection. Breast Tomosynthesis was used in interpretation. COMPARISON FILM: Yes 09/07/22 [facility] 09/05/21 [facility] FINDINGS: ??The breasts are heterogeneously dense, which may obscure small masses. There are no dominant masses, suspicious micro calcifications or areas of architectural distortion. Florida Haney MD MAMMO * (ABNORMAL) LIPID PANEL W REFLEX MEASURED LDL (07/26/2023 2:02 PM [employer]) CHOLESTEROL,TOTAL 181 100 - 199 mg/dL 07/26/2023 9:37 PM [employer] [facility] Comment: Cholesterol, Total Reference Ranges Desirable <200 mg/dL Borderline 200-239 mg/dL High >=240 mg/dL TRIGLYCERIDES 183(H) <150 mg/dL 07/26/2023 9:37 PM [employer] [facility] HDL CHOLESTEROL 51 >40 mg/dL 9:37 PM [employer] [facility] NON-HDL CHOLESTEROL 130 <145 mg/dl 07/26/2023 9:37 PM [employer] [facility] CHOL/HDL RATIO 3.55 <4.50 07/26/2023 9:37 PM [employer] [facility] LDL CHOLESTEROL 93 <=130 mg/dL 07/26/2023 9:37 PM TECHNIC[employer] [facility] VLDL CHOLESTEROL 37(H) <=30 mg/dL 07/26/2023 9:37 PM [employer] [facility] PROVIDER ORDERED STATUS RANDOM 07/26/2023 9:37 PM [employer] [facility] Blood BLOOD SPECIMEN / Unknown Venipuncture / Unknown 07/26/2023 2:02 PM [employer] 07/26/2023 2:03 PM [employer] Florida Haney MD CHEMISTRY [facility] [address] [place] [address], [place] * COLONOSCOPY (11/23/2022 7:45 AM [employer]) 11/23/2022 7:45 AM [employer] Narrative Transcriptions Zev Golden MD - 11/23/2022 9:16 AM CST Patient Name: Dorita Whitfield Procedure Date: 11/23/2022 Gender: Female Date of : 1975 Admit Type: Outpatient Procedure: Colonoscopy Proceduralist: Zev Golden MD , Marilu Matta, MAKAYLA(Nurse), Navya Lainez (Nurse) Referring MD: Florida Haney Indications/Pre-Op Diagnosis: Screening for colorectal malignant neoplasm, This is the patient's first colonoscopy Medications: Fentanyl 100 micrograms IV, Midazolam 4 mgIV, The level of sedation administered wasmoderate Procedure Description: The patient had risks, benefits and alternatives explained to andgave informed consent. The patient had a stable cardiopulmonary status and judged an adequate candidate for conscious sedation. The endoscope [id number]-[id number] [id number] was passed through the anus andadvanced to the cecum, identified by appendiceal orifice and ileocecal valve.The colonoscopy was performed without difficulty. The patient toleratedthe procedure well. The quality of the bowel preparation was good. The ileocecal valve, appendiceal orifice, and rectum were photographed. Complications: No immediate complications. Estimated Blood Loss & Specimen: Estimated blood loss: none. Estimated blood loss: none. Findings: A 4 mm polyp was found in the cecum/appendiceal orfice. The polyp was sessile. The polyp was removed with a cold snare. Resection and retrieval were complete. An 8 mm polyp was found in the ascending colon. The polyp wassessile. The polyp was removed with a cold snare. Resection and retrieval were complete. The colon (entire examined portion) was moderately redundant. The exam was otherwise without abnormality on direct and retroflexion views. Impressions/Post-Op Diagnosis: - One 4 mm polyp in the cecum, removed with a cold snare. Resectedand retrieved. - One 8 mm polyp in the ascending colon, removed with a cold snare. Resected and retrieved. - The examination was otherwise normal on direct and retroflexionviews. Recommendation: - Patient has a contact number available for emergencies. The signsand symptoms of potential delayed complications were discussed with the patient. Return to normal activities tomorrow. Written discharge instructions were provided to the patient. - Resume previous diet. - Continue present medications. - Await pathology results. - Repeat colonoscopy is recommended. The colonoscopy date will be determined after pathology results from today's exam become available for review. Moderate Sedation: A time out was performed before the procedure. Moderate (conscious) sedation was administered by the endoscopy nurse and supervised bythe endoscopist. The following parameters were monitored: oxygensaturation, heart rate, blood pressure, EKG, CO2, respiratory rate, adequacy of pulmonary ventilation and reponse to care. Please refer to the patient's medical record flowsheets and nursing notes for moderate sedation details. Total physician intraservice time was 26 minutes. Zev Golden MD 11/23/2022 9:16:05 AM This report has been signed electronically. Note Initiated On: 11/23/2022 7:45 AM Procedure Code(s): --- Professional --- 74351, Colonoscopy, flexible; with removalof tumor(s), polyp(s), or other lesion(s) bysnare technique Diagnosis Code(s): --- Professional --- Z12.11, Encounter for screening formalignant neoplasm of colon D12.0, Benign neoplasm of cecum D12.2, Benign neoplasm of ascending colon CPT copyright 2020 [employer] [place] [employer]. All rights reserved. The codes documented in this report are preliminary and upon pants presser reviewmay be revised to meet current compliance requirements. Scope In: 8:47:30 AM Scope Withdrawal Time 0 hours 10 minutes 42 seconds Scope Out: 9:09:04 AM Zev Golden MD PROCEDURE ORD * LACE ROLLER THIN PREP PAP SCREEN IMAGED [[id number]] (06/12/2019 11:30 AM CDT) Case Report Gynecologic Cytology Report ? Case: [id number] ? Authorizing Provider: ??Nguyen Guerrero MD Collected: ? 06/12/2019 1130 ? Ordering Location: ? [facility] ?? Received: ?06/12/2019 1203 ? Clinic ? First Screen: ?Judy Hernandez ? Specimen: ?LACE ROLLER ThinPrep Vial Screening, Cervical ? 06/23/2019 6:37 PM CDT [facility] Grabbed [facility] INTERPRETATION/ RESULT NEGATIVE FOR INTRAEPITHELIAL LESION OR MALIGNANCY (NIL) (none) 06/23/2019 6:37 PM CDT [facility] Grabbed [facility] IMEN ADEQUACY Satisfactory for evaluation Endocervical component present 06/23/2019 6:37 PM CDT [facility] HPV REQUEST HPV and PAP 06/23/2019 6:37 PM CDT [facility] Grabbed [facility] Date of LMP unsure 06/23/2019 6:37 PM CDT [facility] Last Pap Date 04/18/16 06/23/2019 6:37 PM CDT [facility] Last Pap Result NIL 9 6:37 PM CDT [facility] Abnormal Pap or [place] Bx in last 5 years No 06/23/2019 6:37 PM CDT [facility] Menstrual Status Hormonally Suppressed 06/23/2019 6:37 PM CDT [facility] [place] Bx Done Today No 06/23/2019 6:37 PM CDT [facility] Additional Information None given 06/23/2019 6:37 PM CDT [facility] Automated Review Successful 06/23/2019 6:37 PM CDT [facility] Comment:Specimen processed s uccessfully by automated director of manufacturing operations device, ThinPrep Imaging System, [employer] ANCILLARY TESTING LACE ROLLER HPV Ordered, Please see separate report 06/23/2019 6:37 PM CDT [facility] Note The pap test is a screening technique, not a diagnostic procedure. ??It is used primarily to screen for squamous cancers and precursor lesions. ??Published studies have shown that it is subject to both false negative and false positive results. ??The pap test should not be used as the sole means to diagnose or exclude pre-malignant and malignant lesions. Cytology is screened and interpreted at [facility] - [address], [place] [address] and [facility] - [address]; [place] [address] and [facility] - [address]; [place] [address] and [facility] [address]; [place] [address] 06/23/2019 6:37 PM CDT [facility] Other (Cervical) Non-Blood / Unknown 06/12/2019 11:30 AM CDT 06/12/2019 12:03 PM CDT Nguyen Guerrero MD PATHOLOGY/CYTOL OGY [facility] [address] [place] [address], [place] * ANTI HCV (08/19/2009 9:01 AM [employer]) ANTI HCV Non-reacti ve [facility] Blood specimen (specimen) BLOOD SPECIMEN / Unknown 08/19/2009 9:01 AM [employer] 08/19/2009 8:56 AM [employer] Violet Bales MD SEND OUTS [facility] INTERNAL ZIP [id number] [place] [id number] * ANTI HIV 1/2 (08/19/2009 9:01 AM [employer]) ANTI HIV 1/2 Non-reacti ve [facility] Blood specimen (specimen) BLOOD SPECIMEN / Unknown 08/19/2009 9:01 AM [employer] 08/19/2009 8:56 AM [employer] Violet Bales MD SEND OUTS Performing Organization Address City/[facility]/ZIP Co de Phone Number [facility] INTERNAL ZIP [id number] [place] [phone] from Last 3 Months or Most Recently Relevant to Health Maintenance Advance Directives * Full Code (Latest Code Status on File) Date Activated Date Inactivated Comments 08/17/2022 9:50 AM 08/17/2022 9:06 PM Question Answer Comments Code Status Discussion: Per Existing Order Care Teams Student Financial Aid Manager Relationship Specialty Start Date End Date Florida Haney MD [address] [place] [address] PCP - General Family Practice 08/18/21
--- NOTE | 2024-03-18 07:45 | CRLHL7_ITS ---
For Patients: As a result of the Century Cures Act, medical imaging exams and procedure reports are released immediately into your electronic medical record. You may view this report before your referring provider. If you have questions, please contact your health care provider. INDICATION: Radiculopathy. COMPARISON: 03/25/2023. TECHNIQUE: Sagittal T1, T2, and STIR sequences. Axial T2/gradient sequences. FINDINGS: Trace degenerative retrolisthesis of C5 on C6 and C6 on C7 measuring approximately 2-3 mm. Normal facet alignment. No fractures. No vertebral body loss of height. No ligamentous injury. No suspicious osseous lesions. Normal cord signal. No intradural mass or lesion. No abnormal enhancement. C1-2: No spinal canal narrowing. C2-3: No spinal canal neural foraminal narrowing. C3-4: No spinal canal neural foraminal narrowing. C4-5: No spinal canal neural foraminal narrowing. C5-6: Disc degeneration loss disc height. Posterior disc bulge disc osteophyte complex. No narrowing of spinal canal. No neural foraminal narrowing. C6-7: Disc degeneration with posterior disc bulge or disc osteophyte complex. Postop changes of left hemilaminectomy. Mild narrowing of spinal canal. Uncovertebral joint hypertrophy results in moderate right and mild left neural foraminal narrowing. C7-T1: No spinal canal neural foraminal narrowing. IMPRESSION: 1. Trace degenerative retrolisthesis of C5 on C6 and C6 on C7 2. Otherwise normal alignment. No fractures. 3. Normal cord signal. 4. No abnormal enhancement 5. At C6-7, left hemilaminectomy. Mild narrowing of the spinal canal. Moderate right and mild left neural foraminal narrowing. 6. No spinal canal or neural foraminal narrowing at the remaining levels Dictated by Suhail Woods MD @ 03/19/2024 8:58:40 AM (Electronically Signed)
== END 2024-03-18 07:32 | disposition home or self-care (01) ==
LOC: MRI 07:32
PROVIDERS: PCP Family Medicine; Visit Provider Family Medicine
DX: M54.12 Radiculopathy, cervical region (principal); M50.30 Other cervical disc degeneration, unspecified cervical region; M47.812 Spondylosis without myelopathy or radiculopathy, cervical region; G56.22 Lesion of ulnar nerve, left upper limb; Z98.890 Other specified postprocedural states
CPT/HCPCS: 72156; A9575

== ENCOUNTER 2024-09-14 09:15 | Outpatient (RCR) | payer BC, SELFPAY | END 2024-09-14 09:59 | disposition home or self-care (01) | PROVIDERS: PCP Family Medicine; Visit Provider Family Medicine | DX: M54.12 Radiculopathy, cervical region (principal); M50.30 Other cervical disc degeneration, unspecified cervical region; Z98.890 Other specified postprocedural states; M47.812 Spondylosis without myelopathy or radiculopathy, cervical region; Z74.09 Other reduced mobility; Z51.89 Encounter for other specified aftercare | CPT/HCPCS: 97012; 97110; 97140; 97161 ==